=== PATIENT | female | born 1990 | race Native Hawaiian/Other Pacific Islander ===

== ENCOUNTER 2017-03-24 15:53 | Emergency (ER) | payer OTHER ==
[2017-03-24] MEDS ORDERED: FUROSEMIDE 20 MG TAB PO STA (17:56)
--- NOTE | 2017-03-24 17:59 | ED ---
General Adult HPI - General Chief complaint: Extremity Problem,Nontraumatic Stated complaint: left ankle swekking x 3 days Time Seen by Provider: 03/24/17 17:12 Source: patient, family, RN notes reviewed, old records reviewed Mode of arrival: wheelchair Limitations: no limitations - History of Present Illness Initial comments: Chief complaint history of present illness a 26-year-old female with complaint of bilateral ankle swelling. On again off again for several days. When she puts her feet up notices that the swelling goes away. The patient weighs 300 pounds. Patient's denying any shortness of breath no difficulty urinating. Never had liver problems.she does use a lot of salt in her diet. - Related Data Home Medications Medication Instructions Recorded Confirmed Albuterol Inhaler [Ventolin 2 puff INHALATION RT-Q6H PRN 08/10/15 03/24/17 Inhaler] Cetirizine HCl [Cetirizine HCl] 10 mg PO DAILY PRN 07/05/16 03/24/17 Fluticasone Propionate 2 spray EA NOSTRIL DAILY 07/05/16 03/24/17 Mometasone/Formoterol [Dulera 200 2 puff INHALATION RT-BID 07/05/16 03/24/17 Mcg/5 Mcg Inhaler] Montelukast [Singulair] 10 mg PO HS 07/05/16 03/24/17 Tiotropium [place] [Spiriva 1 spray INHALATION RT-DAILY 03/24/17 03/24/17 Respimat] Previous Rx's Medication Instructions Recorded Furosemide [Lasix] 20 mg PO DAILY #10 tab 03/24/17 Allergies Allergy/AdvReac Type Severity Reaction Status Date / Time No Known Allergies Allergy Verified 03/24/17 16:59 Review of Systems ROS Statement: Those systems with pertinent positive or pertinent negative responses have been documented in the HPI. review of systems no visual acuity changes no headache chest pain shortness of breath GI/ problems. No neuro complaints. Currently complaint is occasional swelling of both ankles which go away when she keeps her legs elevated. No injuries. All systems are reviewed. Past medical problems significant for asthma and seasonal ALLERGIES. Surgeries tonsillectomy. Patient's family history cancers include cervix ovarian and lung. Denies ALLERGIES. She does smoke strongly encouraged to stop. Denies alcohol use. ROS Other: All systems not noted in ROS Statement are negative. Past Medical History Past Medical History: Asthma Additional Past Medical History / Comment(s): seasonal allergies History of Any Multi-Drug Resistant Organisms: None Reported Past Surgical History: Tonsillectomy Past Psychological History: No Psychological Hx Reported Smoking Status: Current every day smoker Past Alcohol Use History: None Reported Past Drug Use History: None Reported General Exam - General Exam Comments Initial Comments: General: The patient is awake and alert, in no distress, and does not appear acutely ill.complaint of swelling to bothankles. Vital signs stable temperature 98.3 pulse 83 respiratory rate 18 pulse ox 90% room air pressure 134/83 Eye: Pupils are equal, t, extra-ocular movements are intact; there is normal conjunctiva bilaterally. No signs of icterus. Cardiovascular: There is a regular rate and rhythm. No murmur, rub or gallop is appreciated. Respiratory: Lungs are clear to auscultation, respirations are non-labored, breath sounds are equal. No wheezes, stridor, rales, or rhonchi. Gastrointestinal: Soft, non-distended, non-tender abdomen without masses or organomegaly noted. There is no rebound or guarding present. No CVA tenderness. Bowel sounds are unremarkable. Back: There is no tenderness to palpation in the midline. There is no obvious deformity. No rashes noted. Musculoskeletal: Normal ROM, no tenderness, minimal pitting edema. The patientweighs 300 pounds. He needs large amounts with her foods. Neurovascular status is fully intact. Neurological: no neuro deficit Skin: Skin is warm and dry and no rashes or lesions are noted. Limitations: no limitations Course Vital Signs 03/24/17 16:17 Temperature 98.3 F Pulse Rate 83 Respiratory 18 Rate Blood Pressure 134/83 O2 Sat by Pulse 98 Oximetry Medical Decision Making - Medical Decision Making medical decision-making. patient's labs show potassium 4.4, BUN 11 creatinine 0.8 GFR greater than 60. Liver enzymes normal. The patient was given a 20 mg Lasix here in emergency room The plant this size for the patient to decrease salt use take Lasix for next several days and follow with her family physician. Keep legs elevated and the meanwhile - Lab Data Result diagrams: 03/24/17 18:13 Lab Results 03/24/17 Range/Units 18:13 Sodium 138 (137-145) mmol/L Potassium 4.4 (3.5-5.1) mmol/L Chloride 107 (98-107) mmol/L Carbon Dioxide 24 (22-30) mmol/L Anion Gap 7 mmol/L BUN 11 (7-17) mg/dL Creatinine 0.80 (0.52-1.04) mg/dL Est GFR (MDRD) Af Amer >60 (>60 ml/min/1.73 sqM) Est GFR (MDRD) Non-Af >60 (>60 ml/min/1.73 sqM) Glucose 88 (74-99) mg/dL Calcium 9.5 (8.4-10.2) mg/dL Total Bilirubin 0.2 (0.2-1.3) mg/dL AST 17 (14-36) U/L ALT 33 (9-52) U/L Alkaline Phosphatase 81 (38-126) U/L Total Protein 6.8 (6.3-8.2) g/dL Albumin 4.0 (3.5-5.0) g/dL Disposition Clinical Impression: Mild peripheral edema Disposition: HOME SELF-CARE Condition: Fair Instructions: Edema (ED), Leg Edema (ED) Additional Instructions: Keep legs elevated, take Lasix daily for the next several days follow-up with your family doctor. Decrease salt. Prescriptions: Furosemide [Lasix] 20 mg PO DAILY #10 tab Referrals: Josep Pratt MD [Primary Care Provider] - 1-2 days Time of Disposition: 19:14
[2017-03-24 18:41] LABS: ALT 33 U/L (9-52); AST 17 U/L (14-36); Alkaline Phosphatase 81 U/L (38-126); Anion Gap 7 mmol/L; Blood Urea Nitrogen 11 mg/dL (7-17); Calcium 9.5 mg/dL (8.4-10.2); Carbon Dioxide 24 mmol/L (22-30); Chloride 107 mmol/L (98-107); Glucose 88 mg/dL (74-99); Non-African American GFR(MDRD) >60 (>60 ml/min/1.73 sqM); Potassium 4.4 mmol/L (3.5-5.1); Sodium 138 mmol/L (137-145); Total Bilirubin 0.2 mg/dL (0.2-1.3); Total Protein 6.8 g/dL (6.3-8.2)
[2017-03-24 19:21] VITALS: BP 145/70; PULSE 80; RESP 16; TEMP 97.9
== END 2017-03-24 19:29 | disposition home or self-care (01) ==
LOC: EC 15:53
DX: R60.0 Localized edema (principal); J45.909 Unspecified asthma, uncomplicated; F17.200 Nicotine dependence, unspecified, uncomplicated; Z79.51 Long term (current) use of inhaled steroids; Z79.899 Other long term (current) drug therapy; Z91.09 Other allergy status, other than to drugs and biological substances
CPT/HCPCS: 36415; 80053; 99284

== ENCOUNTER 2017-12-05 02:52 | Emergency (ER) | payer OTHER ==
[2017-12-05] MEDS ORDERED: MORPHINE SULF 5MG/10ML VL IVP STA (03:05)
[2017-12-05] MEDS ORDERED: SODIUM CHLORIDE 0.9% 1,000 ML IV STA (03:05)
[2017-12-05] MEDS ORDERED: ONDANSETRON 4 MG/2 ML VIAL IVP STA (03:05)
--- NOTE | 2017-12-05 03:09 | ED ---
Abdominal Pain HPI - General Chief Complaint: Abdominal Pain Stated Complaint: abd pain,vomiting Time Seen by Provider: 12/05/17 03:01 Source: patient Mode of arrival: ambulatory Limitations: no limitations - History of Present Illness Initial Comments: 27-year-old female patient presents to the emergency department today for evaluation of upper abdominal pain and vomiting. Patient reports that she has been having severe abdominal pain after eating for the last 3 weeks. States tonight around 11:00pm the pain started again. States it has been severe and persistent since then. she describes it as a sharp pain. She denies any radiation of the pain to her back. States that she has had several episodes of vomiting since then as well. She denies any hematemesis, hematochezia, or melena. States that it has lasted longer this time so she presented for evaluation. She denies any fevers, states that she has felt chilled. She denies any constipation or diarrhea. Denies any hematuria, dysuria, urinary frequency, urinary urgency. Denies any chance of . Denies any history of abdominal surgeries. Patient denies any recent rash, shortness breath , chest pain, back pain, numbness, tingling, dizziness, weakness, headache, visual changes, or any other complaints. - Related Data Home Medications Medication Instructions Recorded Confirmed Albuterol Inhaler [Ventolin 2 puff INHALATION RT-Q6H PRN 08/10/15 03/24/17 Inhaler] Cetirizine HCl [Cetirizine HCl] 10 mg PO DAILY PRN 07/05/16 03/24/17 Fluticasone Propionate 2 spray EA NOSTRIL DAILY 07/05/16 03/24/17 Mometasone/Formoterol [Dulera 200 2 puff INHALATION RT-BID 07/05/16 03/24/17 Mcg/5 Mcg Inhaler] Montelukast [Singulair] 10 mg PO HS 07/05/16 03/24/17 Tiotropium [place] [Spiriva 1 spray INHALATION RT-DAILY 03/24/17 03/24/17 Respimat] Previous Rx's Medication Instructions Recorded Furosemide [Lasix] 20 mg PO DAILY #10 tab 03/24/17 Omeprazole [PriLOSEC] 20 mg PO AC-BRKFST #30 cap 12/05/17 Ondansetron [Zofran ODT] 4 mg PO Q8HR PRN #10 tab 12/05/17 Allergies Allergy/AdvReac Type Severity Reaction Status Date / Time No Known Allergies Allergy Verified 12/05/17 02:58 Review of Systems ROS Statement: Those systems with pertinent positive or pertinent negative responses have been documented in the HPI. ROS Other: All systems not noted in ROS Statement are negative. Past Medical History Past Medical History: Asthma Additional Past Medical History / Comment(s): seasonal allergies History of Any Multi-Drug Resistant Organisms: None Reported Past Surgical History: Tonsillectomy Past Psychological History: No Psychological Hx Reported Smoking Status: Current every day smoker Past Alcohol Use History: None Reported Past Drug Use History: None Reported General Exam Limitations: no limitations General appearance: alert, in no apparent distress, other (social well-developed , well-nourished adult female patient in no acute distress. Vital signs upon presentation are temperature 96.9F, pulse 85, respirations 16, blood pressure 179/86, pulse ox 100% on room air.) Eye exam: Present: normal appearance, PERRL, EOMI. Absent: scleral icterus, conjunctival injection, periorbital swelling ENT exam: Present: normal exam, normal oropharynx, mucous membranes moist Respiratory exam: Present: normal lung sounds bilaterally. Absent: respiratory distress, wheezes, rales, rhonchi, stridor Cardiovascular Exam: Present: regular rate, normal rhythm, normal heart sounds. Absent: systolic murmur, diastolic murmur, rubs, gallop, clicks GI/Abdominal exam: Present: soft, tenderness (midepigastric abdominal tenderness ), normal bowel sounds. Absent: distended, guarding, rebound, rigid Neurological exam: Present: alert, oriented X3, CN II-XII intact Psychiatric exam: Present: normal affect, normal mood Skin exam: Present: warm, dry, intact, normal color. Absent: rash Course Vital Signs 12/05/17 02:54 Temperature 96.9 F L Pulse Rate 85 Respiratory 16 Rate Blood Pressure 179/86 O2 Sat by Pulse 100 Oximetry Medical Decision Making - Medical Decision Making 27-year-old female patient presents to the emergency department today for evaluation of upper abdominal pain. Physical examination reveals midepigastric tenderness. Labs reviewed and were unremarkable. White blood cell count is negative. Patient is afebrile, vital signs are stable. Patient reported a intermittent pattern of pain that presents when she eats. I did discuss possibilities of gallbladder dysfunction versus peptic ulcer disease. We'll give her prescription for Prilosec and Zofran to manage her symptoms. She is instructed to follow-up with her primary care physician for further evaluation, specifically to discuss possible ultrasound, HIDA scan, or referral to gastroenterology. Return parameters discussed in detail. She verbalizes understanding and agrees with this plan. - Lab Data Result diagrams: 12/05/17 03:02 12/05/17 03:02 Lab Results 12/05/17 12/05/17 12/05/17 Range/Units 03:02 03:02 03:15 WBC 9.2 (3.8-10.6) k/uL RBC 5.00 (3.80-5.40) m/uL Hgb 14.3 (11.4-16.0) gm/dL Hct 41.4 (34.0-46.0) % MCV 82.8 (80.0-100.0) fL MCH 28.6 (25.0-35.0) pg MCHC 34.5 (31.0-37.0) g/dL RDW 12.7 (11.5-15.5) % Plt Count 299 (150-450) k/uL Neutrophils % 54 % Lymphocytes % 35 % Monocytes % 3 % Eosinophils % 5 % Basophils % 0 % Neutrophils # 5.0 (1.3-7.7) k/uL Lymphocytes # 3.3 (1.0-4.8) k/uL Monocytes # 0.3 (0-1.0) k/uL Eosinophils # 0.5 (0-0.7) k/uL Basophils # 0.0 (0-0.2) k/uL Sodium 142 (137-145) mmol/L Potassium 3.8 (3.5-5.1) mmol/L Chloride 106 (98-107) mmol/L Carbon Dioxide 24 (22-30) mmol/L Anion Gap 12 mmol/L BUN 18 H (7-17) mg/dL Creatinine 0.80 (0.52-1.04) mg/dL Est GFR (CKD-EPI)AfAm >90 (>60 ml/min/1.73 sqM) Est GFR (CKD-EPI)NonAf >90 (>60 ml/min/1.73 sqM) Glucose 110 H (74-99) mg/dL Calcium 9.2 (8.4-10.2) mg/dL Total Bilirubin 0.2 (0.2-1.3) mg/dL AST 28 (14-36) U/L ALT 29 (9-52) U/L Alkaline Phosphatase 79 (38-126) U/L Total Protein 6.9 (6.3-8.2) g/dL Albumin 3.9 (3.5-5.0) g/dL Amylase 64 (30-110) U/L Lipase 121 (23-300) U/L Urine Color Urine Appearance (Clear) Urine pH (5.0-8.0) Ur Specific [place] (1.001-1.035) Urine Protein (Negative) Urine Glucose (UA) (Negative) Urine Ketones (Negative) Urine Blood (Negative) Urine Nitrite (Negative) Urine Bilirubin (Negative) Urine Urobilinogen (<2.0) mg/dL Ur Leukocyte Esterase (Negative) Urine RBC (0-5) /hpf Urine WBC (0-5) /hpf Ur Squamous Epith Cells (0-4) /hpf Urine Mucus (None) /hpf Urine HCG, Qual Not Detected (Not Detectd) 12/05/17 Range/Units 03:15 WBC (3.8-10.6) k/uL RBC (3.80-5.40) m/uL Hgb (11.4-16.0) gm/dL Hct (34.0-46.0) % MCV (80.0-100.0) fL MCH (25.0-35.0) pg MCHC (31.0-37.0) g/dL RDW (11.5-15.5) % Plt Count (150-450) k/uL Neutrophils % % Lymphocytes % % Monocytes % % Eosinophils % % Basophils % % Neutrophils # (1.3-7.7) k/uL Lymphocytes # (1.0-4.8) k/uL Monocytes # (0-1.0) k/uL Eosinophils # (0-0.7) k/uL Basophils # (0-0.2) k/uL Sodium (137-145) mmol/L Potassium (3.5-5.1) mmol/L Chloride (98-107) mmol/L Carbon Dioxide (22-30) mmol/L Anion Gap mmol/L BUN (7-17) mg/dL Creatinine (0.52-1.04) mg/dL Est GFR (CKD-EPI)AfAm (>60 ml/min/1.73 sqM) Est GFR (CKD-EPI)NonAf (>60 ml/min/1.73 sqM) Glucose (74-99) mg/dL Calcium (8.4-10.2) mg/dL Total Bilirubin (0.2-1.3) mg/dL AST (14-36) U/L ALT (9-52) U/L Alkaline Phosphatase (38-126) U/L Total Protein (6.3-8.2) g/dL Albumin (3.5-5.0) g/dL Amylase (30-110) U/L Lipase (23-300) U/L Urine Color Yellow Urine Appearance Clear (Clear) Urine pH 6.0 (5.0-8.0) Ur Specific [place] 1.027 (1.001-1.035) Urine Protein Trace H (Negative) Urine Glucose (UA) Negative (Negative) Urine Ketones Negative (Negative) Urine Blood Small H (Negative) Urine Nitrite Negative (Negative) Urine Bilirubin Negative (Negative) Urine Urobilinogen 2.0 (<2.0) mg/dL Ur Leukocyte Esterase Trace H (Negative) Urine RBC <1 (0-5) /hpf Urine WBC 3 (0-5) /hpf Ur Squamous Epith Cells 4 (0-4) /hpf Urine Mucus Rare H (None) /hpf Urine HCG, Qual (Not Detectd) - Radiology Data Radiology results: image reviewed Interpreted by me: Overall nonobstructive bowel gas pattern. No evidence of free air. Disposition Clinical Impression: Abdominal pain Disposition: HOME SELF-CARE Condition: Good Instructions: Abdominal Pain (ED) Additional Instructions: Avoid fatty, spicy, or greasy foods. Take medications as directed. Follow-up with your primary care physician to discuss possible ultrasound, HIDA scan, or referral to gastroenterology. Return here immediately for any new, worsening, or concerning symptoms. Prescriptions: Omeprazole [PriLOSEC] 20 mg PO AC-BRKFST #30 cap Ondansetron [Zofran ODT] 4 mg PO Q8HR PRN #10 tab PRN Reason: Nausea Referrals: Jovon Pratt MD [Primary Care Provider] - 1-2 days Time of Disposition: 03:51
[2017-12-05] MEDS ORDERED: MORPHINE SULF 5MG/10ML VL ONE (03:17)
[2017-12-05 03:18] LABS: Basophils % (A) 0 %; Eosinophils # (A) 0.5 k/uL (0-0.7); Eosinophils % (A) 5 %; HCT 41.4 % (34.0-46.0); HGB 14.3 gm/dL (11.4-16.0); Lymphocytes # (A) 3.3 k/uL (1.0-4.8); Lymphocytes % (A) 35 %; MCH 28.6 pg (25.0-35.0); MCHC 34.5 g/dL (31.0-37.0); MCV 82.8 fL (80.0-100.0); Mean Platelet Volume 6.8; Monocytes # (A) 0.3 k/uL (0-1.0); Monocytes % (A) 3 %; Neutrophils % (A) 54 %; Platelet Count 299 k/uL (150-450); RDW 12.7 % (11.5-15.5); WBC 9.2 k/uL (3.8-10.6)
[2017-12-05 03:31] LABS: ALT 29 U/L (9-52); AST 28 U/L (14-36); Albumin 3.9 g/dL (3.5-5.0); Alkaline Phosphatase 79 U/L (38-126); Amylase 64 U/L (30-110); Anion Gap 12 mmol/L; Blood Urea Nitrogen 18 mg/dL (7-17); Calcium 9.2 mg/dL (8.4-10.2); Carbon Dioxide 24 mmol/L (22-30); Chloride 106 mmol/L (98-107); Glucose 110 mg/dL (74-99); Lipase 121 U/L (23-300); Potassium 3.8 mmol/L (3.5-5.1); Sodium 142 mmol/L (137-145); Total Bilirubin 0.2 mg/dL (0.2-1.3); Total Protein 6.9 g/dL (6.3-8.2)
[2017-12-05 03:35] LABS: Appearance,Urine Clear (Clear); Bilirubin,Urine Negative (Negative); Blood,Urine Small (Negative); Color,Urine Yellow; Glucose,Urine (UA) Negative (Negative); Ketones,Urine Negative (Negative); Leukocyte Esterase,Urine Trace (Negative); Mucus,Urine Rare /hpf; Nitrite,Urine Negative (Negative); Protein,Urine Trace (Negative); RBC,Urine <1 /hpf (0-5); Specific Gravity,Urine 1.027 (1.001-1.035); Squamous Epithelial Cell,Urine 4 /hpf (0-4); WBC,Urine 3 /hpf (0-5)
--- NOTE | 2017-12-05 03:54 | XR ---
EXAM: XR Abdomen, 2 Views CLINICAL HISTORY: ITS.REASON XR Reason: abdominal pain TECHNIQUE: Frontal view of the abdomen/pelvis with upright view of the abdomen. COMPARISON: No relevant prior studies available. FINDINGS: Intraperitoneal space: No free air. Gastrointestinal tract: Unremarkable. No dilation. Bones/joints: Unremarkable. IMPRESSION: Nonspecific, nonobstructive bowel gas pattern.
[2017-12-05 04:19] VITALS: BP 151/83; PULSE 71; RESP 18; TEMP 97.6
== END 2017-12-05 04:19 | disposition home or self-care (01) ==
LOC: EC 02:52
DX: R10.10 Upper abdominal pain, unspecified (principal); R11.10 Vomiting, unspecified; J45.909 Unspecified asthma, uncomplicated; F17.200 Nicotine dependence, unspecified, uncomplicated; Z79.51 Long term (current) use of inhaled steroids; Z79.899 Other long term (current) drug therapy
CPT/HCPCS: 99284; 96374; 96375; 36415; 80053; 82150; 83690; 85025; 81001; 81025; 74018; J2405; J2270

== ENCOUNTER → 2018-03-23 | Day surgery (SDC) | payer OTHER ==
[2018-03-21 08:38] VITALS: BMI 54.3
[~2018-03-23] MED LIST: GLYCOPYRROLATE 0.2 MG/ML 2 ML VIAL ONE; LACTATED RINGERS 1,000 ML IV SCH; LIDOCAINE 1% 20 ML VIAL (10MG/ML) FOR IV START INTRADERMA PRN; LIDOCAINE 1% INJ 10MG/ML (20 ML MDV) ONE; PROPOFOL 10 MG/ML 20 ML VIAL IV ONE
--- NOTE | 2018-03-23 14:38 | P.PCN ---
Date of Procedure: 03/23/18 Procedure(s) Performed: BRIEF HISTORY: Patient is a 27-year-old, pleasant, white female, scheduled for an upper endoscopy as a part of variation of epigastric pain and intermittent episodes of nausea vomiting for the last 6 months duration. She was tried on Prilosec 20 mg daily for 4 weeks with no help. She is hence scheduled for an upper endoscopy to evaluate further. PROCEDURE PERFORMED: Esophagogastroduodenoscopy with biopsy. PREOPERATIVE DIAGNOSIS: Epigastric pain/intermittent nausea vomiting a few months duration IV sedation per anesthesia. PROCEDURE: After informed consent was obtained, the patient was brought into the endoscopy unit. IV sedation was administered by Anesthesia under continuous monitoring. Initially the Olympus GIF-140 video endoscope was inserted into the mouth. Esophagus intubated without any difficulty. It was gradually advanced into the stomach and duodenum and carefully examined. The bulb and the second part of the duodenum appeared normal. Abscess were done to rule out celiac disease. The scope at this time was withdrawn to the stomach, adequately insufflated with air, and upon careful examination, mucosa of the antrum had patchy areas of erythema in the prepyloric area and biopsies were done from this area. The, body, cardia and the fundus appeared normal. The scope was then withdrawn into the esophagus. The GE junction was located at 36 cm from the incisors. There were linear erosions in the distal esophagus consistent with LA grade B reflux esophagitis. Rest of the esophagus appeared normal and the patient tolerated the procedure well. IMPRESSION: 1. Linear erosions in the distal esophagus consistent with LA grade B reflux esophagitis and small hiatal hernia. 2. Mild antral gastritis. RECOMMENDATIONS: The findings of this examination were discussed with the patient as well as a family. She was advised to start on Prilosec 20 mg twice daily to be taken half hour before breakfast and dinnertime and follow antireflux measures. She'll be seen in office in 6 weeks.
[2018-03-23 14:57] VITALS: BP 128/84; PULSE 89
== END ==
LOC: ORWHC2ENDO 12:17
PROVIDERS: ATTEND Internal Medicine Gastroenterology
DX: K21.0 Gastro-esophageal reflux disease with esophagitis (principal); K29.50 Unspecified chronic gastritis without bleeding; K44.9 Diaphragmatic hernia without obstruction or gangrene; Z79.899 Other long term (current) drug therapy; F17.200 Nicotine dependence, unspecified, uncomplicated; Z79.51 Long term (current) use of inhaled steroids
CPT/HCPCS: 81025; 88305; 43239; J2001; J2704

== ENCOUNTER 2018-07-09 20:23 | Emergency (ER) | payer OTHER ==
[2018-07-09 20:31] VITALS: TEMP 98.1
[2018-07-09] MEDS ORDERED: KETOROLAC 30 MG/ML 1 ML VIAL IVP STA (21:13)
[2018-07-09] MEDS ORDERED: SODIUM CHLORIDE 0.9% 500 ML 500 ML IV STA (21:13)
[2018-07-09] MEDS ORDERED: diphenhydrAMINE 50 MG/ML 1 ML VIAL IVP STA (21:13)
[2018-07-09] MEDS ORDERED: METOCLOPRAMIDE 5 MG/ML 2 ML VIAL IVP STA (21:13)
--- NOTE | 2018-07-09 21:27 | ED ---
Headache HPI - General Chief Complaint: Headache Stated Complaint: severe headache; nausea; vomiting; light-headednes Time Seen by Provider: 07/09/18 20:51 Limitations: no limitations - History of Present Illness Initial Comments: This patient is 28-year-old woman presenting to be evaluated for headache that is lasting 3 days coming by nausea and vomiting. The patient states that she does tend to get headaches, but that this one has been more persistent than his usual. She indicates that the headache is bilateral, and involves the frontal and temporal areas area she states the pain is moderate to severe. She has had number of episodes of nausea and vomiting coming the pain. She also notes that the pain gets worse with light and is better in the dark. No other worsening or relieving factors. Other review of systems she has had a bit of a nonproductive cough going on for 4-5 days. MD Complaint: headache Onset/Timin -: days(s) Onset Description: gradual Location: right, left, frontal, temporal Severity: severe Quality: aching Consistency: constant Improves With: nothing Worsens With: light Associated Symptoms: nausea, vomiting, photophobia Treatments Prior to Arrival: none - Related Data Home Medications Medication Instructions Recorded Confirmed Albuterol Inhaler [Ventolin 2 puff INHALATION RT-Q6H PRN 08/10/15 07/09/18 Inhaler] Cetirizine HCl 10 mg PO DAILY PRN 07/05/16 07/09/18 Fluticasone Propionate 2 spray EA NOSTRIL DAILY 07/05/16 07/09/18 Mometasone/Formoterol [Dulera 200 2 puff INHALATION RT-BID 07/05/16 07/09/18 Mcg/5 Mcg Inhaler] Montelukast [Singulair] 10 mg PO HS 07/05/16 07/09/18 Omeprazole 20 mg PO BID 07/09/18 07/09/18 Allergies Allergy/AdvReac Type Severity Reaction Status Date / Time No Known Allergies Allergy Verified 07/09/18 20:42 Review of Systems ROS Statement: Those systems with pertinent positive or pertinent negative responses have been documented in the HPI. ROS Other: All systems not noted in ROS Statement are negative. Constitutional: Denies: fever, chills, weakness Eyes: Denies: eye pain, vision change Respiratory: Reports: cough. Denies: dyspnea, wheezes Cardiovascular: Denies: chest pain, palpitations, edema, syncope Gastrointestinal: Reports: nausea, vomiting. Denies: abdominal pain, diarrhea Genitourinary: Denies: dysuria, hematuria Musculoskeletal: Denies: back pain Skin: Denies: rash, lesions Neurological: Reports: headache. Denies: weakness, numbness, paresthesias, confusion Psychiatric: Denies: anxiety Past Medical History Past Medical History: Asthma Additional Past Medical History / Comment(s): seasonal allergies. HAS BEEN HAING SEVERE ABD. PAIN WITH N/V SINCE OCT 2017 History of Any Multi-Drug Resistant Organisms: None Reported Past Surgical History: Tonsillectomy Past Anesthesia/Blood Transfusion Reactions: No Reported Reaction Past Psychological History: Anxiety Smoking Status: Current every day smoker Past Alcohol Use History: None Reported Past Drug Use History: None Reported - Past Family History Mother Family Medical History: No Reported History General Exam Limitations: no limitations General appearance: alert, in no apparent distress, obese Head exam: Present: atraumatic, normocephalic Eye exam: Present: normal appearance, PERRL, EOMI. Absent: scleral icterus, conjunctival injection, periorbital swelling, periorbital tenderness ENT exam: Present: normal oropharynx, TM's normal bilaterally, normal external ear exam Neck exam: Present: normal inspection, full ROM. Absent: tenderness, meningismus Extremities exam: Present: normal inspection Neurological exam: Present: alert, oriented X3, CN II-XII intact, normal gait. Absent: motor sensory deficit Skin exam: Present: warm, dry, intact, normal color. Absent: rash Course Vital Signs 07/09/18 20:28 Temperature 98.1 F Pulse Rate 73 Respiratory 18 Rate Blood Pressure 157/87 O2 Sat by Pulse 100 Oximetry Disposition Clinical Impression: Headache Disposition: HOME SELF-CARE Condition: Fair Instructions: Acute Headache (ED) Additional Instructions: Should you continue to get headaches, follow with the neurologists with aim to rule out a condition known as pseudotumor cerebri, as were not able to adequately view your retinas today. Is patient prescribed a controlled substance at d/c from ED?: No Referrals: Jovon Pratt MD [Primary Care Provider] - 1-2 days Wilmar Avila MD [STAFF PHYSICIAN] - 1-2 days
--- NOTE | 2018-07-09 22:04 | CT ---
EXAMINATION TYPE: CT brain wo con DATE OF EXAM: 07/09/2018 COMPARISON: None HISTORY: Headache. CT DLP: 1192.4 mGycm. Automated Exposure Control for Dose Reduction was Utilized. TECHNIQUE: CT scan of the head is performed without contrast. FINDINGS: Ventricles and sulci appear normal. There is no mass effect nor midline shift. There is no sign of intracranial hemorrhage. The calvarium is intact. IMPRESSION: Normal CT scan of the brain.
[2018-07-09 23:08] VITALS: BP 117/79; PULSE 70; RESP 16
== END 2018-07-09 23:08 | disposition home or self-care (01) ==
LOC: EC 20:23
DX: R51 Headache (principal); R11.2 Nausea with vomiting, unspecified; R05 Cough; H53.149 Visual discomfort, unspecified; J45.909 Unspecified asthma, uncomplicated; F17.200 Nicotine dependence, unspecified, uncomplicated; Z79.52 Long term (current) use of systemic steroids; Z79.899 Other long term (current) drug therapy; Z87.19 Personal history of other diseases of the digestive system
CPT/HCPCS: 70450; 99284; 96374; 96375 ×2; J1200; J2765; J1885

== ENCOUNTER 2020-07-01 00:57 | Emergency (ER) | payer OTHER ==
[2020-07-01 01:06] VITALS: PULSE 88; RESP 18; TEMP 98.1
--- NOTE | 2020-07-01 02:20 | XR ---
EXAM: XR Sacrum and Coccyx, 2 or more Views CLINICAL HISTORY: ITS.REASON XR Reason: fall TECHNIQUE: Frontal and lateral views of the sacrum and coccyx. COMPARISON: No relevant prior studies available. FINDINGS: Sacrum/coccyx: Posterior offset of the coccyx in relation to the sacrum in the lateral projection is of uncertain chronicity. The sacrum is intact without fracture or abnormal alignment. The sacral arcuate lines and sacroiliac joints are unremarkable. Vertebrae: Visualized lumbar vertebrae are unremarkable. Soft tissues: Unremarkable. IMPRESSION: Posterior offset of the coccyx in relation to the sacrum in the lateral projection is of uncertain chronicity. Differential consideration includes normal variation versus acute traumatic injury. The sacrum is intact without fracture.
--- NOTE | 2020-07-01 02:28 | ED ---
Fall HPI - General Chief Complaint: Fall Stated Complaint: Fall Time Seen by Provider: 07/01/20 01:11 Source: patient Mode of arrival: ambulatory - History of Present Illness Complaint: fall -: days(s) Fall From: standing When Fall Occurred: # days [facility] Fall Occurred: home Loss of Consciousness: none Prolonged Down Time?: no Symptoms Prior to Fall: none Location: buttocks Severity: moderate Context: tripped/slipped Associated Symptoms: denies - Related Data Home Medications Medication Instructions Recorded Confirmed Albuterol Inhaler (Mhu) [Ventolin 2 puff INHALATION RT-Q6H PRN 08/10/15 07/09/18 Inhaler] Cetirizine HCl 10 mg PO DAILY PRN 07/05/16 07/09/18 Fluticasone Propionate 2 spray EA NOSTRIL DAILY 07/05/16 07/09/18 Mometasone/Formoterol [Dulera 200 2 puff INHALATION RT-BID 07/05/16 07/09/18 Mcg/5 Mcg Inhaler] Montelukast [Singulair] 10 mg PO HS 07/05/16 07/09/18 Omeprazole 20 mg PO BID 07/09/18 07/09/18 Previous Rx's Medication Instructions Recorded Hydrocodone/Acetaminophen [Graton 1 each PO Q6HR PRN #20 tab 07/01/20 5-325] Allergies Allergy/AdvReac Type Severity Reaction Status Date / Time No Known Allergies Allergy Verified 07/01/20 01:06 Review of Systems ROS Statement: Those systems with pertinent positive or pertinent negative responses have been documented in the HPI. ROS Other: All systems not noted in ROS Statement are negative. Constitutional: Denies: fever, weakness Respiratory: Denies: cough, dyspnea Cardiovascular: Denies: chest pain, edema, syncope Gastrointestinal: Denies: abdominal pain, vomiting, diarrhea Genitourinary: Denies: dysuria, hematuria Musculoskeletal: Denies: back pain Skin: Denies: rash Neurological: Reports: headache. Denies: weakness, numbness, paresthesias, confusion Past Medical History Past Medical History: Asthma Additional Past Medical History / Comment(s): seasonal allergies. HAS BEEN HAING SEVERE ABD. PAIN WITH N/V SINCE OCT 2017 History of Any Multi-Drug Resistant Organisms: None Reported Past Surgical History: Tonsillectomy Past Anesthesia/Blood Transfusion Reactions: No Reported Reaction Past Psychological History: Anxiety Smoking Status: Current every day smoker Past Alcohol Use History: Rare Past Drug Use History: None Reported - Past Family History Mother Family Medical History: No Reported History General Exam Limitations: no limitations General appearance: alert, in no apparent distress Head exam: Present: atraumatic, normocephalic Eye exam: Present: normal appearance, PERRL, EOMI. Absent: scleral icterus, conjunctival injection, nystagmus ENT exam: Present: normal oropharynx Neck exam: Present: normal inspection, full ROM. Absent: meningismus Respiratory exam: Present: normal lung sounds bilaterally. Absent: respiratory distress, wheezes, rales, rhonchi, stridor Cardiovascular Exam: Present: regular rate, normal rhythm, normal heart sounds. Absent: systolic murmur, diastolic murmur, rubs, gallop Extremities exam: Present: normal inspection, normal capillary refill Neurological exam: Present: alert, oriented X3, CN II-XII intact, normal gait. Absent: motor sensory deficit Skin exam: Present: warm, dry, intact, normal color. Absent: rash Course Vital Signs 07/01/20 07/01/20 01:03 02:45 Temperature 98.1 F 98.1 F Pulse Rate 88 88 Respiratory 18 18 Rate Blood Pressure 159/109 152/92 O2 Sat by Pulse 98 98 Oximetry Disposition Clinical Impression: Fall, Fracture of coccyx Disposition: HOME SELF-CARE Condition: Good Instructions (If sedation given, give patient instructions): Coccyx Injury (ED), Fall Prevention (ED) Prescriptions: Hydrocodone/Acetaminophen [Graton 5-325] 1 each PO Q6HR PRN #20 tab PRN Reason: Pain Is patient prescribed a controlled substance at d/c from ED?: Yes When asked, does pt state using other controlled substances?: No If prescribed controlled substance>3 days was MAPS reviewed?: Prescribed <3 Days If opioid is for acute pain is fill amount 7 days or less?: Yes If Rx opioid, was Start Talking consent form obtained?: Yes Referrals: Jovon Pratt MD [Primary Care Provider] - 1-2 days Jules Tuttle MD [STAFF PHYSICIAN] - 1-2 days
[2020-07-01 02:50] VITALS: BP 152/92
== END 2020-07-01 02:49 | disposition home or self-care (01) ==
LOC: EC 00:57
DX: S32.2XXA Fracture of coccyx, initial encounter for closed fracture (principal); J45.909 Unspecified asthma, uncomplicated; F17.200 Nicotine dependence, unspecified, uncomplicated; Z79.899 Other long term (current) drug therapy; Z79.51 Long term (current) use of inhaled steroids; W10.9XXA Fall (on) (from) unspecified stairs and steps, initial encounter; Y92.009 Unspecified place in unspecified non-institutional (private) residence as the place of occurrence of the external cause
CPT/HCPCS: 72220; 99283

== ENCOUNTER 2021-02-08 11:54 | Emergency (ER) | payer OTHER ==
[2021-02-08] MEDS ORDERED: ACET/COD 300 MG/30 MG STARTER PACK 6 TAB BTL PO STA (12:52)
--- NOTE | 2021-02-08 12:58 | ED ---
Skin/Abscess/FB HPI - General Chief complaint: Skin/Abscess/Foreign Body Stated complaint: infected lip Time Seen by Provider: 02/08/21 12:52 Source: patient, RN notes reviewed Mode of arrival: ambulatory Limitations: no limitations - History of Present Illness Initial comments: 30-year-old female complaining of mouth pain. She notes that she recently had a crushed salivary gland removed on last Monday. She notes that she would be able to schedule a follow-up appointment. She wanted to come in to make sure it wasn't infected or looks infected. She was in no apparent distress or pain while sitting up in bed during exam and interview. She noted that the pain is approximate 78 out of 10 constant with no relief. She notes that she's tried t aking Tylenol Motrin with no relief. She denied any pus, bleeding, foul taste chest pain shortness breath headache nausea vomiting diarrhea constipation fever fatigue chills. - Related Data Home Medications Medication Instructions Recorded Confirmed Albuterol Inhaler (Mhu) [Ventolin 2 puff INHALATION RT-Q6H PRN 08/10/15 07/09/18 Inhaler] Cetirizine HCl 10 mg PO DAILY PRN 07/05/16 07/09/18 Fluticasone Propionate 2 spray EA NOSTRIL DAILY 07/05/16 07/09/18 Mometasone/Formoterol [Dulera 200 2 puff INHALATION RT-BID 07/05/16 07/09/18 Mcg/5 Mcg Inhaler] Montelukast [Singulair] 10 mg PO HS 07/05/16 07/09/18 Omeprazole 20 mg PO BID 07/09/18 07/09/18 Previous Rx's Medication Instructions Recorded Hydrocodone/Acetaminophen [[place] 1 each PO Q6HR PRN #20 tab 07/01/20 5-325] Allergies Allergy/AdvReac Type Severity Reaction Status Date / Time No Known Allergies Allergy Verified 02/08/21 12:27 Review of Systems ROS Statement: Those systems with pertinent positive or pertinent negative responses have been documented in the HPI. ROS Other: All systems not noted in ROS Statement are negative. Past Medical History Past Medical History: Asthma Additional Past Medical History / Comment(s): seasonal allergies. HAS BEEN HAING SEVERE ABD. PAIN WITH N/V SINCE OCT 2017 History of Any Multi-Drug Resistant Organisms: None Reported Past Surgical History: Tonsillectomy Past Anesthesia/Blood Transfusion Reactions: No Reported Reaction Past Psychological History: Anxiety Smoking Status: Current every day smoker Past Alcohol Use History: Rare Past Drug Use History: None Reported - Past Family History Mother Family Medical History: No Reported History General Exam Limitations: no limitations General appearance: alert, in no apparent distress Head exam: Present: atraumatic, normocephalic, normal inspection Eye exam: Present: normal appearance, PERRL, EOMI. Absent: scleral icterus, conjunctival injection, periorbital swelling ENT exam: Present: normal exam, mucous membranes moist, other (Healing incision on the right inner lip, not erythematous. Mild emaciation from being wet.) Neck exam: Present: normal inspection. Absent: tenderness, meningismus, lymphadenopathy Respiratory exam: Present: normal lung sounds bilaterally. Absent: respiratory distress, wheezes, rales, rhonchi, stridor Cardiovascular Exam: Present: regular rate, normal rhythm, normal heart sounds. Absent: systolic murmur, diastolic murmur, rubs, gallop, clicks GI/Abdominal exam: Present: soft, normal bowel sounds. Absent: distended, tenderness, guarding, rebound, rigid Extremities exam: Present: normal inspection, full ROM, normal capillary refill. Absent: tenderness, pedal edema, joint swelling, calf tenderness Neurological exam: Present: alert, oriented X3, CN II-XII intact Psychiatric exam: Present: normal affect, normal mood Skin exam: Present: warm, dry, intact, normal color. Absent: rash Course Vital Signs 02/08/21 12:23 Temperature 98.5 F Pulse Rate 59 L Respiratory 18 Rate Blood Pressure 153/93 O2 Sat by Pulse 98 Oximetry Medical Decision Making - Medical Decision Making 30-year-old female complaining of pain after having a salivary gland cyst removed last Monday. Final 3 starter pack ordered. Patient is fine with this and will follow up with her doctor in the next 1-3 days. Case discussed with Dr. Murphy, patient follow-up with her specialist to remove the cyst. Disposition Clinical Impression: Mouth pain Disposition: HOME SELF-CARE Instructions (If sedation given, give patient instructions): Pain Management (ED) Additional Instructions: Please return to the Emergency Department if symptoms worsen or any other concerns. Follow-up with mild specialist in the next 1-3 days. Take Tylenol 3 as prescribed. Can use Motrin in between. Is patient prescribed a controlled substance at d/c from ED?: No Referrals: Jovon Pratt MD [Primary Care Provider] - 1-2 days Time of Disposition: 12:58
[2021-02-08 13:18] VITALS: BP 150/77; PULSE 64; RESP 16; TEMP 98.6
== END 2021-02-08 13:17 | disposition home or self-care (01) ==
LOC: EC 11:54
DX: K13.79 Other lesions of oral mucosa (principal); J45.909 Unspecified asthma, uncomplicated; F17.200 Nicotine dependence, unspecified, uncomplicated; Z79.51 Long term (current) use of inhaled steroids
CPT/HCPCS: 99282

== ENCOUNTER → 2022-05-26 | Outpatient (CLI) | payer OTHER ==
--- NOTE | 2022-05-27 05:53 | MR ---
EXAMINATION TYPE: MR foot RT wo con DATE OF EXAM: 05/26/2022 COMPARISON: None HISTORY: Right foot pain, mass on bottom of foot for 1 year. Marker placed. Multiplanar multiecho imaging of the right foot with no contrast. There is a marker on the bottom of the forefoot at the plantar aspect of the mid first metatarsal in the area of concern. This 10 mm rounded mass within the skin on the plantar aspect of the foot in the area of concern. This has low signal on T1 imaging and slight increased signal on the T2 imaging. Th e margins are fairly sharp. The plantar fascia appears intact. No evidence of focal bone destruction. The metatarsals are intact. The hindfoot appears intact. The medial and lateral flexor tendons of the foot appear intact. Achilles tendon is intact. There is subcutaneous edema around the lower leg. IMPRESSION: There is a small rounded cutaneous mass on the plantar aspect of the medial forefoot in the area of c oncern. The appearance is nonspecific. No fracture seen. No evidence of ligament or tendon tear. Subcutaneous edema around the lower leg.
== END | disposition home or self-care (01) ==
LOC: RADMRIMAIN 14:44
PROVIDERS: ATTEND Podiatrist Foot & Ankle Surgery
DX: R22.41 Localized swelling, mass and lump, right lower limb (principal)

== ENCOUNTER → 2023-05-04 | Outpatient (CLI) | payer OTHER ==
[2023-05-04 21:12] LABS: Rheumatoid Factor, Qnt <15 IU/mL (0-15); Uric Acid 5.8 mg/dL (2.9-7.7)
[2023-05-05 00:44] LABS: Cardiolipin Ab IgG Interp Negative (Negative); Cardiolipin Ab IgM Interp Negative (Negative); Cardiolipin IgA Antibody <2.0 U/mL; Cardiolipin IgM Antibody <1.5 U/mL
[2023-05-05 11:38] LABS: HLA B27 NEGATIVE
== END | disposition home or self-care (01) ==
LOC: LABWHC1 13:15
PROVIDERS: ATTEND Family Medicine
DX: Z51.81 Encounter for therapeutic drug level monitoring (principal); M79.641 Pain in right hand
CPT/HCPCS: 36415; 82306; 84550; 85652; 86038; 86140; 86147; 86431; 86812